=== PATIENT | female | born 1975 | race Caucasian/White ===

== ENCOUNTER 2016-10-04 13:29 | Emergency (ER) | payer MEDICAID ==
[~2016-10-04] VITALS: Ht 170.2 cm; Wt 72.5 kg
[~2016-10-04 13:29] MED LIST: ABAC1TAB12 PO; DARU800T PO; IBUP-1542 PO; LEVE-5 PO; LEVO500T72 PO; METO10TA96 PO; NORV100 PO; OXYC-279 PO; RILP25TA PO
[2016-10-04 13:36] VITALS: Ht 170.2 cm; Wt 72.5 kg
[2016-10-04] MEDS ORDERED: NAPROXEN 500 MG TAB PO ONE (14:00)
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
[2016-10-04] MEDS ORDERED: NAPR-260 PO (15:49)
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
== END 2016-10-04 16:06 | disposition home or self-care (01) ==
LOC: FTE 13:29
DX: S39.92XA Unspecified injury of lower back, initial encounter (principal); S19.9XXA Unspecified injury of neck, initial encounter; V49.40XA Driver injured in collision with unspecified motor vehicles in traffic accident, initial encounter
CPT/HCPCS: 72040; 72100; Z7610

== ENCOUNTER 2017-02-26 07:38 | Emergency (ER) | payer MEDICAID ==
[~2017-02-26] VITALS: Ht 160 cm; Wt 78.4 kg
[~2017-02-26 07:38] MED LIST changes: +NAPR-260 PO
[2017-02-26 07:39] VITALS: Ht 160 cm; Wt 78.4 kg
[2017-02-26] MEDS ORDERED: ONDANSETRON 4 MG INJ IV STA (08:11)
[2017-02-26] MEDS ORDERED: morphine 4 MG/ML VIAL IV STA (08:11)
[2017-02-26 08:56] LABS: BASOPHILS % 0.2 % (0.0-2.0); EOSINOPHILS # 0.1 10^3/ul (0.0-0.5); EOSINOPHILS % 0.6 % (0.0-7.0); HEMATOCRIT 39.5 % (37.0-47.0); HEMOGLOBIN 13.7 g/dl (12.0-16.0); LYMPHOCYTES # 0.8 10^3/ul (0.8-2.9); LYMPHOCYTES % 7.9 % (15.0-51.0); MEAN CORPUSCULAR HEMOGLOBIN 32.7 pg (29.0-33.0); MEAN CORPUSCULAR HGB CONC 34.7 g/dl (32.0-37.0); MEAN CORPUSCULAR VOLUME 94.3 fl (82.0-101.0); MEAN PLATELET VOLUME 10.6 fl (7.4-10.4); MONOCYTE # 0.3 10^3/ul (0.3-0.9); MONOCYTES % 3.1 % (0.0-11.0); NEUTROPHIL # 8.9 10^3/ul (1.6-7.5); NEUTROPHILS % 87.9 % (39.0-77.0); PLATELET COUNT 193 10^3/UL (140-415); RED BLOOD COUNT 4.19 10^6/ul (4.20-5.40); RED CELL DISTRIBUTION WIDTH 12.4 % (11.5-14.5); WHITE BLOOD COUNT 10.1 10^3/ul (4.8-10.8)
[2017-02-26 09:03] LABS: ADD UMIC YES; UR ASCORBIC ACID NEGATIVE (NEGATIVE); UR BILIRUBIN (Dip) NEGATIVE (NEGATIVE); UR BLOOD (Dip) 3+ mg/dL (NEGATIVE); UR CLARITY CLEAR (CLEAR); UR COLOR YELLOW (YELLOW); UR GLUCOSE (Dip) NEGATIVE (NEGATIVE); UR KETONES (Dip) NEGATIVE (NEGATIVE); UR LEUKOCYTE ESTERASE (Dip) NEGATIVE Leu/ul (NEGATIVE); UR NITRITE (Dip) NEGATIVE (NEGATIVE); UR RBC 4 /HPF (0-5); UR SPECIFIC GRAVITY (Dip) 1.024 (1.003-1.030); UR SQUAMOUS EPITHELIAL CELL FEW /HPF (FEW); UR TOTAL PROTEIN (Dip) 2+ mg/dl (NEGATIVE); UR UROBILINOGEN (Dip) NEGATIVE (NEGATIVE)
[2017-02-26 09:16] LABS: ALBUMIN 4.1 g/dl (3.3-4.9); ALBUMIN/GLOBULIN RATIO 0.91; BILIRUBIN,INDIRECT 0.4 mg/dl (0-1.1); BILIRUBIN,TOTAL 0.4 mg/dl (0.2-1.3); CALCIUM 8.6 mg/dl (8.4-10.2); CREATININE 0.86 mg/dl (0.44-1.00); POTASSIUM 3.7 mmol/L (3.5-5.1); TOTAL PROTEIN 8.6 g/dl (6.1-8.1)
--- NOTE | 2017-02-26 09:36 | ERD ---
ER Documentation Chief Complaint Chief Complaint ABD PAIN WITH N/V/D HPI This a 41-year-old female who presents the emergency department today complaining of abdominal pain, vomiting diarrhea that started last night. Patient states she is HIV positive and is unsure what her CD4 count is but she does take 2 medications. States she also took Imodium. Denies any fevers or chills, dysuria. ROS All systems reviewed and are negative except as per history of present illness. Medications Home Meds Active Scripts Acetaminophen* (Tylophen*) 500 Mg Capsule, 1 CAP PO Q6H Y for PAIN AND OR ELEVATED TEMP, #30 CAP Prov:LEXIE BOURGEOISC 02/26/17 Dicyclomine Hcl* (Bentyl*) 10 Mg Capsule, 10 MG PO QID for 7 Days, CAP Prov:LEXIE BOURGEOISC 02/26/17 Ondansetron Hcl* (Zofran*) 4 Mg Tablet, 4 MG PO Q6H for NAUSEA AND/OR VOMITING, #30 TAB Prov:LEXIE BOURGEOIS PA-C 02/26/17 Electrolyte,Oral (Pedialyte) 1,000 Ml Solution, 100 ML PO Q6 Y for DIARRHEA, # 1000 ML Prov:LEXIE BOURGEOIS PA-C 02/26/17 Naproxen* (Naprosyn*) 500 Mg Tablet, 500 MG PO BID Y for PAIN AND/OR INFLAMMATION, #30 TAB Prov:YESSENIA KOCHC 10/04/16 Oxycodone HCl/Acetaminophen (Percocet 5-325 mg Tablet) 1 Each Tablet, 1 EACH PO Q6 Y for SEVERE PAIN LEVEL 7-10, #10 TAB Prov:JENNA BASSETT NP 03/21/16 Ibuprofen* (Motrin*) 600 Mg Tab, 600 MG PO Q6H Y for PAIN AND OR ELEVATED TEMP, #30 TAB Prov:JENNA BASSETT NP 03/21/16 Levofloxacin* (Levaquin*) 500 Mg Tablet, 500 MG PO DAILY for 7 Days, TAB Prov:NOÉ ROCKWELL 03/05/16 Reported Medications Levetiracetam* (Keppra*) 500 Mg Tablet, 500 MG PO BID, TAB 03/01/16 Metoclopramide Hcl* (Metoclopramide Hcl*) 10 Mg Tablet, 10 MG PO BID Y for NAUSEA AND OR VOMITING, TAB 03/01/16 Darunavir* (Prezista*) 800 Mg Tablet, 800 MG PO DAILY, TAB 03/01/16 Abacavir/Dolutegravir/Lamivudi (Triumeq Tablet) 1 Each Tablet, 1 EACH PO DAILY, TAB 03/01/16 Ritonavir* (Norvir*) 100 Mg Capsule, 100 MG PO DAILY, CAP 03/01/16 Rilpivirine Hcl (EDURANT) 25 Mg Tablet, 25 MG PO DAILY, TAB 03/01/16 Allergies Allergies: Coded Allergies: No Known Allergies (Verified Allergy, Mild, 03/01/16) PMhx/Soc History of Surgery: Yes (c/section x1, appendectomy) Anesthesia Reaction: No Hx Neurological Disorder: No Hx Respiratory Disorders: No Hx Cardiac Disorders: No Hx Psychiatric Problems: No Hx Miscellaneous Medical Probl: Yes (hiv) Hx Alcohol Use: No Hx Substance Use: No Hx Tobacco Use: No Physical Exam Vitals Vital Signs Date Time Temp Pulse Resp B/P Pulse Ox O2 Delivery O2 Flow Rate FiO2 02/26/17 07:39 97.8 90 18 123/69 97 Physical Exam Const: NAD Head: Atraumatic Eyes: Normal Conjunctiva ENT: Normal External Ears, Nose and Mouth. Neck: Full range of motion..~ No meningismus. Resp: Clear to auscultation bilaterally Cardio: Regular rate and rhythm, no murmurs Abd: Soft, gastric and right upper quadrant tenderness, non distended. Normal bowel sounds no lower abdominal pain. No tenderness at McBurney's. Skin: No petechiae or rashes Back: No midline or flank tenderness Ext: No cyanosis, or edema Neur: Awake and alert Psych: Normal Mood and Affect Result Diagram: 02/26/17 0840 02/26/17 0840 Results 24 hrs Laboratory Tests Test 02/26/17 08:40 White Blood Count 10.110^3/ul Red Blood Count 4.1910^6/ul Hemoglobin 13.7g/dl Hematocrit 39.5% Mean Corpuscular Volume 94.3fl Mean Corpuscular Hemoglobin 32.7pg Mean Corpuscular Hemoglobin Concent 34.7g/dl Red Cell Distribution Width 12.4% Platelet Count 19914^3/UL Mean Platelet Volume 10.6fl Neutrophils % 87.9% Lymphocytes % 7.9% Monocytes % 3.1% Eosinophils % 0.6% Basophils % 0.2% Nucleated Red Blood Cells % 0.0/100WBC Neutrophils # 8.910^3/ul Lymphocytes # 0.810^3/ul Monocytes # 0.310^3/ul Eosinophils # 0.110^3/ul Basophils # 0.010^3/ul Nucleated Red Blood Cells # 0.010^3/ul Urine Color YELLOW Urine Clarity CLEAR Urine pH 5.0 Urine Specific [place] 1.024 Urine Ketones NEGATIVEmg/dL Urine Nitrite NEGATIVEmg/dL Urine Bilirubin NEGATIVEmg/dL Urine Urobilinogen NEGATIVEmg/dL Urine Leukocyte Esterase NEGATIVELeu/ul Urine Microscopic RBC 4/HPF Urine Microscopic WBC 3/HPF Urine Squamous Epithelial Cells FEW/HPF Urine Hemoglobin 3+mg/dL Urine Glucose NEGATIVEmg/dL Urine Total Protein 2+mg/dl Sodium Level 141mmol/L Potassium Level 3.7mmol/L Chloride Level 111mmol/L Carbon Dioxide Level 19mmol/L Anion Gap 15 Blood Urea Nitrogen 24mg/dl Creatinine 0.86mg/dl Glucose Level 112mg/dl Calcium Level 8.6mg/dl Total Bilirubin 0.4mg/dl Direct Bilirubin 0.00mg/dl Indirect Bilirubin 0.4mg/dl Aspartate Amino Transf (AST/SGOT) 24IU/L Alanine Aminotransferase (ALT/SGPT) 19IU/L Alkaline Phosphatase 74IU/L Total Protein 8.6g/dl Albumin 4.1g/dl Globulin 4.50g/dl Albumin/Globulin Ratio 0.91 Lipase 94U/L Current Medications Medications (Trade) Dose Ordered Sig/Isidro Route PRN Reason Start Time Stop Time Status Last Admin Dose Admin Ondansetron HCl (Zofran Inj) 4 mg ONCE STAT IV 02/26/17 08:11 02/26/17 08:13 DC 02/26/17 08:47 Morphine Sulfate (morphine) 4 mg ONCE STAT IV 02/26/17 08:11 02/26/17 08:13 DC 02/26/17 08:47 Acetaminophen/ Hydrocodone Bitart ([place] (5/325)) 1 tab ONCE ONCE PO 02/26/17 11:00 02/26/17 11:01 DC 02/26/17 11:31 DIAGNOSTIC IMAGING REPORT Patient: SAMI HENDERSON : 1975 Age: 41 Sex: F MR #: [id number] DOS: 02/26/17 0000 Ordering MD: LEXIE BOURGEOIS PA-C Location: [facility] Room/Bed: PROCEDURE: US Abdomen. CLINICAL INDICATION: abdominal pain TECHNIQUE: Multiple real-time images were acquired of the patient's right upper quadrant abdomen and retroperitoneum utilizing a high resolution transducer. COMPARISON: US ABDOMEN 02/16/2016 FINDINGS: The liver demonstrates normal echogenicity. The liver is normal in size and no focal solid lesions are seen. The liver measures 14.5 cm in length. The portal vein is patent with normal direction of flow. No intrahepatic biliary dilatation is seen. No gallstones are identified within the gallbladder. There is no pericholecystic fluid or gallbladder wall thickening. The common bile duct measures 4 mm in maximal dimension. The visualized portions of the pancreas are unremarkable. The tail of the pancreas is not seen. No free fluid is identified. The right kidney is normal in size, and demonstrate normal echogenicity and cortical thickness. The right kidney measures 11.1 cm in long dimension. There is no evidence of hydronephrosis. There are no kidney stones. RPTAT: AA IMPRESSION: Unremarkable right upper quadrant abdominal ultrasound. .Chris Patel MD, MD Date Time Electronically viewed and signed by .Chris Patel MD, MD on 02/26/2017 10: 24 .S/ CC: LEXIE BOURGEOIS PA-C Procedures/[facility] This is a 41-year-old female who presents emergency department today complaining of abdominal pain, vomiting and diarrhea that started this morning. Patient has a history of HIV. Given patient health status I did obtain laboratory workup as well. Back to reassess the patient she stated that her pain improved but she still had pain at her right upper quadrant and therefore did obtain an ultrasound. Laboratory workup shows no elevated white blood cell count. She is not anemic. Platelets are within normal limits. Chloride is very mildly elevated. BUN is elevated at 24. Creatinine is within normal limits. Glucose within normal limits. Liver enzymes within normal limits. Lipase within normal limits. UA is negative for infection. urine test is negative RUQ ultrasound unremarkable. There is no pericholecystic fluid or gallbladder wall thickening. There are no gallstones identified. Common bile duct measures 4 mm in maximal dimension. Symptoms at this time is consistent with abdominal pain, vomiting and diarrhea likely viral. Patient has no lower abdominal pain or low suspicion for acute surgical abdomen, acute cholecystitis, pancreatitis. Low suspicion for DKA Given morphine and Zofran here in the emergency department pain improved prior to discharge patient was complaining of pain. She was given one [place]. He reported feeling better and she was tolerating oral fluids and was requesting to go home. Patient was given a prescription for Tylenol, Zofran, Bentyl and pedialyte At this time the patient is stable for discharge and outpatient management. Patient should follow up with their PCP in the next 1-2 days. They may return to the emergency department sooner for any persistent or worsening of symptoms. Patient understood and agreed with the plan. Departure Diagnosis: Primary Impression: Abdominal pain Abdominal location: upper abdomen, unspecified Qualified Code: R10.10 - Pain of upper abdomen Additional Impression: Vomiting and diarrhea Condition: LEXIE Nixon PA-C Feb 26, 2017 09:36
--- NOTE | 2017-02-26 10:24 | RADRPT ---
PROCEDURE: US Abdomen. CLINICAL INDICATION: abdominal pain TECHNIQUE: Multiple real-time images were acquired of the patient's right upper quadrant abdomen a nd retroperitoneum utilizing a high resolution transducer. COMPARISON: US ABDOMEN 02/16/2016 FINDINGS: The liver demonstrates normal echogenicity. The liver is normal in size and no focal solid lesions are seen. The liver measures 14.5 cm in length. The portal vein is patent with normal direction of f low. No intrahepatic biliary dilatation is seen. No gallstones are identified within the gallbladder. There is no pericholecystic fluid or gallbladd er wall thickening. The common bile duct measures 4 mm in maximal dimension. The visualized portions of the pancreas are unremarkable. The tail of the pancreas is not seen. No free fluid is identified. The right kidney is normal in size, and demonstrate normal echogenicity and cortical thickness. The right kidney measures 11.1 cm in long dimension. There is no evidence of hydronephrosis. There are no kidney stones. RPTAT: AA IMPRESSION: Unremarkable right upper quadrant abdominal ultrasound. .Chris Patel MD, MD Date Time Electronically viewed and signed by .Chris Patel MD, on 02/26/2017 10:24 .S/
[2017-02-26] MEDS ORDERED: HYDROCODONE/APAP (5/325) TAB PO ONE (11:00)
[2017-02-26] MEDS ORDERED: ELEC100080 PO (11:29)
[2017-02-26] MEDS ORDERED: DICY10CA60 PO (11:29)
[2017-02-26] MEDS ORDERED: ONDA4TAB8 PO (11:29)
[2017-02-26] MEDS ORDERED: ACET500C5 PO (11:30)
[2017-02-26 11:59] VITALS: BP 118/66; PULSE 77; RESP 18; TEMP 97.5
== END 2017-02-26 12:02 | disposition home or self-care (01) ==
LOC: FTE 07:38
DX: R10.10 Upper abdominal pain, unspecified (principal); R11.10 Vomiting, unspecified; R19.7 Diarrhea, unspecified
CPT/HCPCS: 76705; 80053; 81001; 83690; 85025; 96374; 96375; J2270; J2405; Z7502; Z7610

== ENCOUNTER 2018-02-15 20:10 | Emergency (ER) | END 2018-02-15 22:58 | disposition home or self-care (01) ==

== ENCOUNTER 2018-02-23 13:04 | Emergency (ER) | END 2018-02-23 15:30 | disposition home or self-care (01) ==